=== PATIENT | male | born 1975 | race Hispanic/Latino ===

== ENCOUNTER 2018-03-11 20:14 | Emergency (ER) | payer BC ==
[2018-03-11] MEDS ORDERED: Bacitracin 500 Units/gm Oint Foilpak UD TOP ONE (20:52)
[2018-03-11] MEDS ORDERED: Lidocaine 1% w Epi 1:100,000 Inj INJ ONE (20:52)
[2018-03-11] MEDS ORDERED: Tdap Vaccine 0.5 ml Vial (10-64 yrs) IM ONE (20:56)
--- NOTE | 2018-03-11 21:00 | C.PDOC ---
History Of Present Illness 42 year old male presents to the ED for an evaluation of laceration to the right eyebrow sustained playing Rugby 5 hours ago. Reports he collided heads with another player. Denies fall to ground after collision, LOC, nausea, vomiting, visual changes, headache or changes in sensation. Time Seen by Provider: 03/11/18 20:48 Chief Complaint (Nursing): Abnormal Skin Integrity History Per: Patient History/Exam Limitations: no limitations Onset/Duration Of Symptoms: Hrs Current Symptoms Are (Timing): Still Present Location Of Injury: Anterior: Face (laceration to right eyebrow ) Past Medical History Reviewed: Historical Data, Nursing Documentation, Vital Signs Vital Signs: Last Vital Signs Temp 98.2 F 03/11/18 20:19 Pulse 68 03/11/18 20:19 Resp 20 03/11/18 20:19 BP 146/81 03/11/18 20:19 Pulse Ox 97 03/11/18 20:19 - Medical History PMH: Hypothyroidism Surgical History: No Surg Hx - [facility] Procedures CLOSURE SKIN & SUBCUTANEOUS NEC (02/24/13) Family History: States: No Known Family Hx - Social History Hx Tobacco Use: No Hx Alcohol Use: Yes Hx Substance Use: No - Immunization History Hx Tetanus Toxoid Vaccination: Yes Hx Influenza Vaccination: No Hx Pneumococcal Vaccination: No Review Of Systems Eyes: Negative for: Vision Change Gastrointestinal: Negative for: Nausea, Vomiting Skin: Positive for: Other (2cm laceration to right eyebrow) Neurological: Negative for: Headache Physical Exam - Physical Exam Appears: Non-toxic, No Acute Distress Skin: Warm, Dry Head: Normacephalic, Laceration (2cm laceration to right eyebrow ) Eye(s): bilateral: Normal Inspection, PERRL, EOMI Nose: Normal Oral Mucosa: Moist Neck: Normal ROM, Supple Chest: Symmetrical Respiratory: No Accessory Muscle Use Extremity: Normal ROM Extremity: Bilateral: Atraumatic Neurological/Psych: Oriented x3, Normal Speech, Normal Cognition, Normal Motor, Normal Sensation Gait: Steady ED Course And Treatment O2 Sat by Pulse Oximetry: 97 (RA) Pulse Ox Interpretation: Normal Progress Note: Patient treated with Tylenol and Bacitracin. Tetanus vaccination administered. Discussed risk and benefits of head CT. Agreed upon no CT at this time and will observe. discussed wound care and wound check in 2 days. Return to ER if sympoms persist or worsen. Laceration - Laceration Repair right eyebrow Wound Length (In cm): 2cm Description Of Wound: Linear Anesthesia: Lidocaine 2% Wound Examination: Irrigated With Saline, No FB With Wound Exploration, No Tendon Injury With Wound Exploration Wound Closure: Suture (4) Suture Technique And Material Used: Interrupted, Nylon (6-0) Wound Complexity: Simple Disposition - Disposition Disposition: HOME/ ROUTINE Disposition Time: 21:19 Condition: STABLE Additional Instructions: Watch for sign of infection including redness, swelling or discharge. Watch for signs of concern for head injury including headache, vomiting or change in mental status. Wound check in 2 days. Suture removal in 5 days. Instructions: Laceration Repair With Stitches (DC), Minor Head Injury (DC) Forms: [employer] (Liberian) - Clinical Impression Clinical Impression: Laceration of forehead - PA / HEALTHCARE PROJECT MANAGER / Resident Statement MD/DO has reviewed & agrees with the documentation as recorded. - Scribe Statement The provider has reviewed the documentation as recorded by the [facility] [place] All medical record entries made by the Scribe were at my direction and personally dictated by me. I have reviewed the chart and agree that the record accurately reflects my personal performance of the history, physical exam, medical decision making, and the department course for this patient. I have also personally directed, reviewed, and agree with the discharge instructions and disposition.
[2018-03-11] MEDS ORDERED: Tetanus/Diphtheria Toxoids 0.5 ml Syringe IM ONE (21:06)
[2018-03-11] MEDS ORDERED: Bacitracin 500 Units/gm Oint Foilpak UD ONE (21:28)
[2018-03-11 21:42] VITALS: BP 138/76; PULSE 64; RESP 18; TEMP 98.4
[2018-03-14 13:05] VITALS: O2SAT 97
== END 2018-03-11 21:46 | disposition home or self-care (01) ==
LOC: C.ER 20:14
DX: S01.111A Laceration without foreign body of right eyelid and periocular area, initial encounter (principal); W51.XXXA Accidental striking against or bumped into by another person, initial encounter; Y93.63 Activity, rugby; E03.9 Hypothyroidism, unspecified; Z23 Encounter for immunization